=== PATIENT | female | born 1980 | race Caucasian/White ===

== ENCOUNTER 2017-05-13 13:06 | Emergency (ER) | payer MEDICAID ==
[2017-05-13 14:01] LABS: ADD MAN DIFF? NO
[2017-05-13 14:04] LABS: WHITE BLOOD COUNT 7.2 10^3/ul (4.8-10.8)
[2017-05-13 14:04] LABS: BASOPHIL # 0.1 10^3/ul (0.0-0.1); EOSINOPHILS # 0.6 10^3/ul (0.0-0.5); EOSINOPHILS % 7.6 % (0.0-7.0); HEMOGLOBIN 13.4 g/dl (12.0-16.0); LYMPHOCYTES # 2.9 10^3/ul (0.8-2.9); MEAN CORPUSCULAR HEMOGLOBIN 27.2 pg (29.0-33.0); MEAN CORPUSCULAR HGB CONC 33.5 g/dl (32.0-37.0); MEAN CORPUSCULAR VOLUME 81.3 fl (82.0-101.0); MEAN PLATELET VOLUME 10.3 fl (7.4-10.4); MONOCYTE # 0.5 10^3/ul (0.3-0.9); MONOCYTES % 7.3 % (0.0-11.0); NEUTROPHIL # 3.2 10^3/ul (1.6-7.5); NEUTROPHILS % 43.7 % (39.0-77.0); PLATELET COUNT 257 10^3/UL (140-415); RED BLOOD COUNT 4.92 10^6/ul (4.20-5.40); RED CELL DISTRIBUTION WIDTH 13.7 % (11.5-14.5)
[2017-05-13] MEDS: ONDANSETRON 4 MG INJ IV (14:19)
[2017-05-13] MEDS: morphine 4 MG/ML VIAL IV (14:20)
[2017-05-13] MEDS: SOD CHLORIDE 0.9% 500 ML IV (14:23)
[2017-05-13 14:28] LABS: ANION GAP 16 (8-16); BLOOD UREA NITROGEN 10 mg/dl (7-20); CARBON DIOXIDE 24 mmol/L (21-31); CHLORIDE 107 mmol/L (97-110); CREATININE 0.65 mg/dl (0.44-1.00); GLUCOSE 101 mg/dl (70-220); POTASSIUM 3.8 mmol/L (3.5-5.1); SODIUM 143 mmol/L (135-144)
[2017-05-13 14:40] LABS: TROPONIN-I < 0.012 ng/ml (0.00-0.12)
[2017-05-13] MEDS ORDERED: IOHEXOL 100 ML (14:50)
[2017-05-13] MEDS ORDERED: SOD CHLORIDE 0.9% 100 ML (14:50)
== END 2017-05-13 15:43 | disposition home or self-care (01) ==
LOC: E/R 13:06
DX: R07.89 Other chest pain (principal); I10 Essential (primary) hypertension; R10.2 Pelvic and perineal pain; Z85.3 Personal history of malignant neoplasm of breast
CPT/HCPCS: 36415; 71045; 71275; 80048; 84484; 84703; 85025; 93005; 99285-25

== ENCOUNTER 2018-09-15 23:11 | Inpatient (IN) | payer MEDICAID ==
[2018-09-15] MEDS: VANCOMYCIN 1 GM (PMX) 250 ML IVPB (23:30)
[2018-09-15 23:31] LABS: ADD MAN DIFF? NO
[2018-09-15 23:36] LABS: WHITE BLOOD COUNT 13.8 10^3/ul (4.8-10.8)
[2018-09-15 23:36] LABS: BASOPHIL # 0.1 10^3/ul (0.0-0.1); BASOPHILS % 0.7 % (0.0-2.0); EOSINOPHILS # 1.1 10^3/ul (0.0-0.5); EOSINOPHILS % 8.1 % (0.0-7.0); HEMATOCRIT 41.3 % (37.0-47.0); HEMOGLOBIN 13.9 g/dl (12.0-16.0); LYMPHOCYTES # 2.7 10^3/ul (0.8-2.9); LYMPHOCYTES % 19.6 % (15.0-51.0); MEAN CORPUSCULAR HEMOGLOBIN 27.7 pg (29.0-33.0); MEAN CORPUSCULAR HGB CONC 33.7 g/dl (32.0-37.0); MEAN CORPUSCULAR VOLUME 82.3 fl (82.0-101.0); MEAN PLATELET VOLUME 10.5 fl (7.4-10.4); MONOCYTE # 1.1 10^3/ul (0.3-0.9); MONOCYTES % 8.3 % (0.0-11.0); NEUTROPHIL # 8.7 10^3/ul (1.6-7.5); NEUTROPHILS % 62.8 % (39.0-77.0); PLATELET COUNT 264 10^3/UL (140-415); RED BLOOD COUNT 5.02 10^6/ul (4.20-5.40); RED CELL DISTRIBUTION WIDTH 13.5 % (11.5-14.5)
[2018-09-15] MEDS ORDERED: ONDANSETRON 4 MG INJ (23:37)
[2018-09-15] MEDS: HYDROmorphONE 2 MG/ML SYG IV (23:39)
[2018-09-15] MEDS: ACETAMINOPHEN 325 MG TAB PO (23:39)
[2018-09-15] MEDS: ONDANSETRON 4 MG INJ IV (23:39)
[2018-09-15] MEDS: SODIUM CHLORIDE 0.9% 1L BAG IV* (23:41)
[2018-09-15] MEDS: CEFEPIME 2GM/50 ML (PMX) 50 ML IVPB (23:41)
[2018-09-15 23:45] LABS: ADD UMIC YES; UR ASCORBIC ACID NEGATIVE (NEGATIVE); UR BACTERIA FEW /HPF (NONE SEEN); UR BILIRUBIN (Dip) NEGATIVE (NEGATIVE); UR BLOOD (Dip) 2+ mg/dL (NEGATIVE); UR CLARITY SLIGHTLY CLOUDY (CLEAR); UR COLOR YELLOW (YELLOW); UR GLUCOSE (Dip) NEGATIVE (NEGATIVE); UR KETONES (Dip) NEGATIVE (NEGATIVE); UR LEUKOCYTE ESTERASE (Dip) NEGATIVE Leu/ul (NEGATIVE); UR MUCUS FEW /HPF (NONE SEEN); UR NITRITE (Dip) NEGATIVE (NEGATIVE); UR RBC 12 /HPF (0-5); UR SPECIFIC GRAVITY (Dip) 1.012 (1.003-1.030); UR SQUAMOUS EPITHELIAL CELL FEW /HPF (FEW); UR TOTAL PROTEIN (Dip) 1+ mg/dl (NEGATIVE); UR UROBILINOGEN (Dip) NEGATIVE (NEGATIVE); UR WBC 1 /HPF (0-5)
[2018-09-15 23:56] LABS: ALANINE AMINOTRANSFERASE 27 IU/L (13-69); ALBUMIN 4.6 g/dl (3.3-4.9); ALBUMIN/GLOBULIN RATIO 1.24; ALKALINE PHOSPHATASE 115 IU/L (42-121); ANION GAP 11 (5-13); ASPARTATE AMINO TRANSFERASE 33 IU/L (15-46); BILIRUBIN,INDIRECT 0.6 mg/dl (0-1.1); BILIRUBIN,TOTAL 0.6 mg/dl (0.2-1.3); BLOOD UREA NITROGEN 10 mg/dl (7-20); CALCIUM 9.3 mg/dl (8.4-10.2); CARBON DIOXIDE 23 mmol/L (21-31); CHLORIDE 105 mmol/L (97-110); CREATININE 0.66 mg/dl (0.44-1.00); Estimated GFR > 60 mL/min (>60); GLUCOSE 142 mg/dl (70-220); INR 0.87; POTASSIUM 3.9 mmol/L (3.5-5.1); PROTIME 11.9 Sec (11.9-14.9); PT RATIO 0.9; SODIUM 139 mmol/L (135-144); TOTAL PROTEIN 8.3 g/dl (6.1-8.1)
[2018-09-15 23:57] LABS: PARTIAL THROMBOPLASTIN TIME 28.6 Sec (23.0-35.0)
[2018-09-16 00:07] LABS: TROPONIN-I < 0.012 ng/ml (0.000-0.120)
[2018-09-16 03:17] LABS: LACTIC ACID 0.7 mmol/L (0.5-2.0)
[2018-09-16] MEDS ORDERED: NACL 0.9% 3 ML SYG IV (05:30)
[2018-09-16] MEDS ORDERED: ALBUTEROL/IPRATROPIUM (NEB) 3 ML AMP HHN (05:30)
[2018-09-16] MEDS ORDERED: ONDANSETRON 4 MG INJ IV (05:30)
[2018-09-16] MEDS ORDERED: IBUPROFEN 600 MG TAB PO (05:30)
[2018-09-16] MEDS: SOD CHLORIDE 0.9% 1,000 ML IV ×2 (05:40→15:48)
[2018-09-16 06:03] LABS: ADD MAN DIFF? NO
[2018-09-16 06:10] LABS: WHITE BLOOD COUNT 9.9 10^3/ul (4.8-10.8)
[2018-09-16 06:10] LABS: BASOPHIL # 0.1 10^3/ul (0.0-0.1); BASOPHILS % 0.8 % (0.0-2.0); EOSINOPHILS # 0.9 10^3/ul (0.0-0.5); EOSINOPHILS % 9.1 % (0.0-7.0); HEMATOCRIT 37.2 % (37.0-47.0); HEMOGLOBIN 12.5 g/dl (12.0-16.0); LYMPHOCYTES # 1.9 10^3/ul (0.8-2.9); LYMPHOCYTES % 19.1 % (15.0-51.0); MEAN CORPUSCULAR HEMOGLOBIN 27.8 pg (29.0-33.0); MEAN CORPUSCULAR HGB CONC 33.6 g/dl (32.0-37.0); MEAN CORPUSCULAR VOLUME 82.9 fl (82.0-101.0); MEAN PLATELET VOLUME 10.5 fl (7.4-10.4); MONOCYTE # 1.1 10^3/ul (0.3-0.9); MONOCYTES % 11.2 % (0.0-11.0); NEUTROPHIL # 5.9 10^3/ul (1.6-7.5); NEUTROPHILS % 59.4 % (39.0-77.0); PLATELET COUNT 229 10^3/UL (140-415); RED BLOOD COUNT 4.49 10^6/ul (4.20-5.40); RED CELL DISTRIBUTION WIDTH 13.8 % (11.5-14.5)
[2018-09-16 06:32] LABS: LACTIC ACID 0.9 mmol/L (0.5-2.0)
[2018-09-16 06:40] LABS: HEMOGLOBIN A1C 5.5 % (0-5.9)
[2018-09-16 06:44] LABS: ALANINE AMINOTRANSFERASE 31 IU/L (13-69); ALBUMIN 3.6 g/dl (3.3-4.9); ALBUMIN/GLOBULIN RATIO 1.09; ALKALINE PHOSPHATASE 90 IU/L (42-121); ANION GAP 9 (5-13); ASPARTATE AMINO TRANSFERASE 23 IU/L (15-46); BILIRUBIN,INDIRECT 0.5 mg/dl (0-1.1); BILIRUBIN,TOTAL 0.5 mg/dl (0.2-1.3); BLOOD UREA NITROGEN 7 mg/dl (7-20); CALCIUM 7.9 mg/dl (8.4-10.2); CARBON DIOXIDE 21 mmol/L (21-31); CHLORIDE 110 mmol/L (97-110); CHOL/HDL RATIO 4.6 RATIO; CHOLESTEROL 130 mg/dl (100-200); CREATININE 0.53 mg/dl (0.44-1.00); Estimated GFR > 60 mL/min (>60); GLUCOSE 103 mg/dl (70-220); HDL CHOLESTEROL 28 mg/dl (34-88); LDL CHOLESTEROL,CALCULATED 55 mg/dl; POTASSIUM 3.8 mmol/L (3.5-5.1); SODIUM 140 mmol/L (135-144); TOTAL PROTEIN 6.9 g/dl (6.1-8.1); TRIGLYCERIDES 234 mg/dl (0-149)
[2018-09-16] MEDS: AMLODIPINE 5 MG TAB PO (08:58)
[2018-09-16] MEDS: ENOXAPARIN 40 MG/0.4 ML SYG SC (09:00)
[2018-09-16] MEDS: LEVOFLOXACIN 500MG/D5W (PMX) 100 ML IVPB (09:29)
[2018-09-16 17:42] LABS: PROCALCITONIN 0.07 ng/mL (0.00-0.10)
[2018-09-16] MEDS: OXYMETAZOLINE 0.05% 15 ML NAS SPRAY NASAL (20:41)
[2018-09-17] MEDS: SOD CHLORIDE 0.9% 1,000 ML IV ×3 (01:14→21:40)
[2018-09-17 06:00] LABS: ADD MAN DIFF? NO
[2018-09-17 06:12] LABS: BASOPHIL # 0.1 10^3/ul (0.0-0.1); BASOPHILS % 0.7 % (0.0-2.0); EOSINOPHILS # 0.9 10^3/ul (0.0-0.5); EOSINOPHILS % 11.6 % (0.0-7.0); HEMATOCRIT 37.5 % (37.0-47.0); HEMOGLOBIN 12.3 g/dl (12.0-16.0); LYMPHOCYTES # 2.4 10^3/ul (0.8-2.9); LYMPHOCYTES % 31.5 % (15.0-51.0); MEAN CORPUSCULAR HEMOGLOBIN 27.5 pg (29.0-33.0); MEAN CORPUSCULAR HGB CONC 32.8 g/dl (32.0-37.0); MEAN CORPUSCULAR VOLUME 83.7 fl (82.0-101.0); MEAN PLATELET VOLUME 10.4 fl (7.4-10.4); MONOCYTE # 0.6 10^3/ul (0.3-0.9); MONOCYTES % 8.5 % (0.0-11.0); NEUTROPHIL # 3.6 10^3/ul (1.6-7.5); NEUTROPHILS % 47.3 % (39.0-77.0); PLATELET COUNT 242 10^3/UL (140-415); RED BLOOD COUNT 4.48 10^6/ul (4.20-5.40); RED CELL DISTRIBUTION WIDTH 13.6 % (11.5-14.5)
[2018-09-17 06:12] LABS: WHITE BLOOD COUNT 7.5 10^3/ul (4.8-10.8)
[2018-09-17] MEDS: LEVOFLOXACIN 750 MG TABLET PO (06:31)
[2018-09-17 06:58] LABS: ANION GAP 6 (5-13); BLOOD UREA NITROGEN 9 mg/dl (7-20); CALCIUM 8.3 mg/dl (8.4-10.2); CARBON DIOXIDE 23 mmol/L (21-31); CHLORIDE 111 mmol/L (97-110); Estimated GFR > 60 mL/min (>60); GLUCOSE 92 mg/dl (70-220); PHOSPHORUS 3.8 mg/dl (2.5-4.9); POTASSIUM 4.2 mmol/L (3.5-5.1); SODIUM 140 mmol/L (135-144)
[2018-09-17 07:10] LABS: ALANINE AMINOTRANSFERASE 31 IU/L (13-69); ALBUMIN 3.6 g/dl (3.3-4.9); ALBUMIN/GLOBULIN RATIO 1.24; ALKALINE PHOSPHATASE 66 IU/L (42-121); ANION GAP 7 (5-13); ASPARTATE AMINO TRANSFERASE 29 IU/L (15-46); BILIRUBIN,INDIRECT 0.6 mg/dl (0-1.1); BILIRUBIN,TOTAL 0.6 mg/dl (0.2-1.3); BLOOD UREA NITROGEN 10 mg/dl (7-20); CALCIUM 8.8 mg/dl (8.4-10.2); CARBON DIOXIDE 22 mmol/L (21-31); CHLORIDE 111 mmol/L (97-110); CREATININE 0.59 mg/dl (0.44-1.00); Estimated GFR > 60 mL/min (>60); GLUCOSE 92 mg/dl (70-220); POTASSIUM 4.4 mmol/L (3.5-5.1); SODIUM 140 mmol/L (135-144); TOTAL PROTEIN 6.5 g/dl (6.1-8.1)
[2018-09-17] MEDS: AMLODIPINE 5 MG TAB PO (08:33)
[2018-09-17] MEDS: ENOXAPARIN 40 MG/0.4 ML SYG SC (08:39)
[2018-09-17] MEDS: OXYMETAZOLINE 0.05% 15 ML NAS SPRAY NASAL ×3 (08:45→21:36)
[2018-09-17] MEDS: LEVOFLOXACIN 500MG/D5W (PMX) 100 ML IVPB (11:32)
[2018-09-17] MEDS: OSELTAMIVIR 75 MG CAP PO ×2 (12:18→21:36)
[2018-09-17] MEDS: GUAIFENESIN/DM 5ML CUP PO (23:21)
[2018-09-18] MEDS: SOD CHLORIDE 0.9% 1,000 ML IV ×2 (07:06→08:10)
[2018-09-18] MEDS: LEVOFLOXACIN 750 MG TABLET PO (07:21)
[2018-09-18] MEDS: OSELTAMIVIR 75 MG CAP PO (08:06)
[2018-09-18] MEDS: AMLODIPINE 5 MG TAB PO (08:14)
[2018-09-18] MEDS: OXYMETAZOLINE 0.05% 15 ML NAS SPRAY NASAL (08:15)
[2018-09-18] MEDS: ENOXAPARIN 40 MG/0.4 ML SYG SC (08:19)
== END 2018-09-18 18:03 | disposition home or self-care (01) | DRG 195 ==
LOC: E/R 23:11 → 5EC 09-16 03:11
DX: J18.9 Pneumonia, unspecified organism (principal); Z85.3 Personal history of malignant neoplasm of breast
CPT/HCPCS: 36415; 71045; 71250; 80048; 80053; 80061; 81001; 81025; 83036; 83605; 83735; 84100; 84145; 84443; 84484; 85025; 85610; 85730; 87040-91; 87086; 87400; 93005; 96365; 96375; 99285-25